=== PATIENT | female | born 1950 | race American Indian/Alaskan Native ===

== ENCOUNTER 2019-09-20 10:54 | Observation (INO) | payer MEDICARE ==
[2019-09-20] MEDS ORDERED: ASPIRIN 81 MG TAB CHEW PO ONE (11:16)
[2019-09-20] MEDS ORDERED: ALBUTEROL 2.5 MG/3 ML NEBU IH ONE (11:17)
[2019-09-20] MEDS ORDERED: methylPREDNISolone Sod Succinate 125 MG/2 ML INJ IV ONE (11:17)
[2019-09-20] MEDS ORDERED: MORPHINE 4 MG/1 ML INJ IV ONE (11:17)
[2019-09-20] MEDS ORDERED: IPRATROPIUM 0.02% NEBU 2.5 ML IH ONE (11:17)
[2019-09-20] MEDS ORDERED: ONDANSETRON 4 MG/2 ML INJ IV ONE (11:17)
--- NOTE | 2019-09-20 11:22 | Emergency Department Report ---
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 Patient presented to the ER complaining of substernal chest pain, described as tightness with no radiation. Patient also complaining of shortness of breath and difficulty in breathing. Patient stated that she went to [facility] 3 days ago and she was discharged from the ER after she received a breathing treatment. Patient stated that chest pain started this morning. Patient denied any fever or chills. MD Complaint: chest pain -: This morning Onset: during rest Pain Location: substernal Pain Radiation: none Severity: moderate Severity scale (0 -10): 5 Quality: tightness Consistency: constant Improves With: nothing Worsens With: nothing - Related Data Home Medications Medication Instructions Recorded Confirmed Last Taken Furosemide 40 mg PO DAILY 01/04/17 01/04/17 Unknown HYDROcodone/ACETAMINOPHEN 10 mg PO DAILY 01/04/17 01/04/17 Unknown [Hydrocodon-Acetaminophen 5-500 Tab (Nf)] Levothyroxine [Synthroid] 50 mcg PO QAM 01/04/17 01/04/17 Unknown Oxycodone HCl [Oxycontin] 40 mg PO DAILY 01/04/17 01/04/17 Unknown Pregabalin [Lyrica] 100 mg PO DAILY 01/04/17 01/04/17 Unknown Previous Rx's Medication Instructions Recorded Last Taken Type HYDROcodone/APAP 7.5-325 [[place] 1 each PO Q6HR PRN #20 tablet 02/27/14 Unknown Rx 7.5/325 mg] Allergies Allergy/AdvReac Type Severity Reaction Status Date / Time topiramate AdvReac Unknown Verified 09/20/19 11:23 Heart Score - HEART Score History: Moderately suspicious ED Review of Systems ROS: Stated complaint: CHEST PAIN Other details as noted in HPI Comment: All other systems reviewed and negative Constitutional: denies: chills, fever Respiratory: shortness of breath, SOB with exertion, SOB at rest, wheezing. denies: cough Cardiovascular: chest pain Gastrointestinal: denies: abdominal pain, nausea, vomiting Musculoskeletal: denies: back pain Neurological: denies: headache, weakness, numbness, paresthesias, confusion, abnormal gait ED Past Medical Hx - Past Medical History Hx Hypertension: No Hx Heart Attack/AMI: No Hx Congestive Heart Failure: No Hx Diabetes: No Hx Deep Vein Thrombosis: No Hx Pulmonary Embolism: No Hx Liver Disease: No Hx Renal Disease: No Hx Sickle Cell Disease: No Hx Arthritis: No Hx Kidney Stones: No Hx Asthma: No Hx COPD: Yes Hx Tuberculosis: No Hx HIV: No Additional medical history: chronic pain - Surgical History Hx Coronary Stent: No Hx Pacemaker: No Hx Internal Defibrillator: No Hx Appendectomy: Yes Additional Surgical History: bilateral AKA,partial right breast/thyroidectomy - Social History Smoking Status: Current Every Day Smoker - Medications Home Medications: Home Medications Medication Instructions Recorded Confirmed Last Taken Type HYDROcodone/APAP 7.5-325 [[place] 1 each PO Q6HR PRN #20 tablet 02/27/14 01/04/17 Unknown Rx 7.5/325 mg] Furosemide 40 mg PO DAILY 01/04/17 01/04/17 Unknown History HYDROcodone/ACETAMINOPHEN 10 mg PO DAILY 01/04/17 01/04/17 Unknown History [Hydrocodon-Acetaminophen 5-500 Tab (Nf)] Levothyroxine [Synthroid] 50 mcg PO QAM 01/04/17 01/04/17 Unknown History Oxycodone HCl [Oxycontin] 40 mg PO DAILY 01/04/17 01/04/17 Unknown History Pregabalin [Lyrica] 100 mg PO DAILY 01/04/17 01/04/17 Unknown History ED Physical Exam - General General appearance: alert, in no apparent distress - Head Head exam: Present: atraumatic, normocephalic, normal inspection - Eye Eye exam: Present: normal appearance - ENT ENT exam: Present: normal exam, normal orophraynx, mucous membranes moist - Neck Neck exam: Present: normal inspection. Absent: tenderness, meningismus - Respiratory Respiratory exam: Present: wheezes, decreased breath sounds - Cardiovascular Cardiovascular Exam: Present: regular rate, normal rhythm, normal heart sounds - GI/Abdominal GI/Abdominal exam: Present: soft, normal bowel sounds. Absent: distended, tenderness, guarding, rebound, rigid, organomegaly, mass, bruit, pulsatile mass, hernia - Extremities Exam Extremities exam: Present: normal inspection, full ROM, normal capillary refill ED Course Vital Signs 09/20/19 09/20/1920 11:08 11:16 11:17 Temperature 97.5 F L Pulse Rate 78 65 Pulse Rate [ Anterior Bilateral Throughout] Respiratory 21 16 Rate Respiratory Rate [Anterior Bilateral Throughout] Blood Pressure 132/54 132/54 O2 Sat by Pulse 98 100 99 Oximetry 09/20/19 09/20/19 09/20/19 11:30 11:45 12:00 Temperature Pulse Rate 67 66 67 Pulse Rate [ Anterior Bilateral Throughout] Respiratory 16 13 14 Rate Respiratory Rate [Anterior Bilateral Throughout] Blood Pressure 132/54 119/74 O2 Sat by Pulse 97 97 99 Oximetry 09/20/19 09/20/19 09/20/19 12:15 12:30 12:45 Temperature Pulse Rate 61 61 76 Pulse Rate [ Anterior Bilateral Throughout] Respiratory 11 L 7 L 20 Rate Respiratory Rate [Anterior Bilateral Throughout] Blood Pressure 119/74 111/66 111/66 O2 Sat by Pulse 94 95 94 Oximetry 09/20/19 09/20/19 13:00 13:27 Temperature Pulse Rate 68 Pulse Rate [ 78 Anterior Bilateral Throughout] Respiratory 8 L Rate Respiratory 19 Rate [Anterior Bilateral Throughout] Blood Pressure 118/63 O2 Sat by Pulse 96 Oximetry ED Medical Decision Making - Lab Data Result diagrams: 09/20/19 11:54 09/20/19 11:54 - EKG Data -: EKG Interpreted by Nv EKG shows normal: sinus rhythm Rate: normal - EKG Data Interpretation: no acute changes - Radiology Data Radiology results: report reviewed - Medical Decision Making Patient is 68 years old female with history of hypertension, COPD, 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 Patient presented to the ER complaining of substernal chest pain, described as tightness with no radiation. Patient also complaining of shortness of breath and difficulty in breathing. Patient stated that she went to [facility] 3 days ago and she was discharged from the ER after she received a breathing treatment. Patient stated that chest pain started this morning. Patient denied any fever or chills. Patient EKG showed no ST elevation. Labs reviewed and is unremarkable except for elevated d-dimer. Patient is allergic to IV dye so VQ scan ordered. Patient received morphine for pain. I discussed the patient with Dr. Todd, he agreed to admit the patient to medical service for further management. Critical care attestation.: If time is entered above; I have spent that time in minutes in the direct care of this critically ill patient, excluding procedure time. ED Disposition Clinical Impression: Chest pain Disposition: OP ADMIT IP TO THIS HOSP Is pt being admited?: Yes Condition: Stable Instructions: Chest Pain (ED)
[2019-09-20] MEDS ORDERED: PANTOPRAZOLE 40 MG INJ IV ONE (11:39)
--- NOTE | 2019-09-20 11:49 | XRay Report ---
CHEST 1 VIEW INDICATION: Chest Pain. COMPARISON: 01/04/2017 FINDINGS: Support devices: None. Heart: Normal. Lungs/Pleura: Mild diffuse increased interstitial markings are noted, similar to the prior. No consol idation, significant effusion, or pneumothorax. IMPRESSION: 1. Age-indeterminate diffuse increased interstitial markings, similar to the remote prior exam. Signer Name: Luis M Goodman MD Signed: 09/20/2019 11:44 AM Workstation Name: [id number]
[2019-09-20 12:12] LABS: Basophils % (Auto) 0.3 % (0.0-1.8); Eosinophils % (Auto) 0.5 % (0.0-4.3); Hematocrit 35.8 % (30.3-42.9); Hemoglobin 11.7 gm/dl (10.1-14.3); Lymphocytes # (Auto) 0.8 K/mm3 (1.2-5.4); Mean Corpuscular HGB Conc 33 % (30-34); Mean Corpuscular Volume 88 fl (79-97); Monocytes # (Auto) 0.1 K/mm3 (0.0-0.8); Monocytes % (Auto) 3.6 % (0.0-7.3); Red Blood Count 4.08 M/mm3 (3.65-5.03); Red Cell Distribution Width 14.6 % (13.2-15.2)
[2019-09-20 12:19] LABS: Platelet Count 98 K/mm3 (140-440)
[2019-09-20 12:22] LABS: INR 1.01 (0.87-1.13)
[2019-09-20 12:33] LABS: BUN/Creatinine Ratio 13; Blood Urea Nitrogen 10 mg/dL (7-17); Calcium 9.5 mg/dL (8.4-10.2); Hemolysis Index 4
[2019-09-20 12:37] LABS: Alanine Aminotransferase 7 units/L (7-56)
[2019-09-20 12:44] LABS: Bilirubin,Direct < 0.2 mg/dL (0-0.2)
--- NOTE | 2019-09-20 15:03 | History and Physical Report ---
History of Present Illness Chief complaint: I cannot get my breathing right History of present illness: 68 YO Female with COPD, Nicotine Dependence, Chronic Pain Syndrome, SHA presents to ED for evaluation. Patient states that she has experienced rapid breathing, feeling of impending doom, feeling scared, and feeling short of breath over the past 3 days with recurrent symptoms intermittently. Patient was seen and evaluated at [facility] for the aforementioned symptoms and subsequently discharged home yesterday with supportive care. Patient states that she has experienced recurrent symptoms overnight. EMS was notified and upon arrival the patient was found to be in distress and subsequently transp orted to [facility] for further care and evaluation. Patient seen and evaluated in the emergency department. Lab and imaging studies reviewed. Patient found to have symptoms consistent with atypical chest pain secondary to generalized anxiety disorder. Patient placed in observation status and admitted to [facility] unit. Patient treated with supportive care, PPI therapy, benzodiazepine therapy. Patient declined psychiatry consult. Advanced care planning conducted in ED. Patient denies fever, chills, productive cough, skin rash, recent ill contacts. No prior admission for review. All listed medication reconciled at time of admission. Past History Past Surgical History: appendectomy, mastectomy, Other ([id number] amputation) Social history: , smoking. denies: alcohol abuse, prescription drug abuse Family history: no significant family history Medications and Allergies Allergies Allergy/AdvReac Type Severity Reaction Status Date / Time topiramate AdvReac Unknown Verified 09/20/19 11:23 Home Medications Medication Instructions Recorded Confirmed Last Taken Type HYDROcodone/APAP 7.5-325 [[place] 1 each PO Q6HR PRN #20 tablet 02/27/14 01/04/17 Unknown Rx 7.5/325 mg] Furosemide 40 mg PO DAILY 01/04/17 01/04/17 Unknown History HYDROcodone/ACETAMINOPHEN 10 mg PO DAILY 01/04/17 01/04/17 Unknown History [Hydrocodon-Acetaminophen 5-500 Tab (Nf)] Levothyroxine [Synthroid] 50 mcg PO QAM 01/04/17 01/04/17 Unknown History Oxycodone HCl [Oxycontin] 40 mg PO DAILY 01/04/17 01/04/17 Unknown History Pregabalin [Lyrica] 100 mg PO DAILY 01/04/17 01/04/17 Unknown History Review of Systems Constitutional: no weight loss, no weight gain, no fever, no chills Ears, nose, mouth and throat: no ear pain, no ear discharge, no tinnitis, no decreased hearing, no nose pain, no nasal congestion Breasts: no change in shape, no swelling, no mass Cardiovascular: no chest pain, no orthopnea, no rapid/irregular heart beat Respiratory: no cough, no cough with sputum, no excessive sputum Gastrointestinal: no nausea, no vomiting, no diarrhea, no constipation Genitourinary Female: no pelvic pain, no flank pain, no menorrhagia Rectal: no pain, no incontinence, no bleeding Musculoskeletal: no neck stiffness, no neck pain, no leg numbness/tingling, no r edness of joints Integumentary: no rash, no pruritis, no redness, no sores, no wounds Neurological: no transient paralysis, no parathesias, no numbness, no syncope Psychiatric: anxiety, sleep disturbances, depression, anxiety attacks, difficulties concentrating, irritability, sadness/tearfullness, mood swings Endocrine: no cold intolerance, no heat intolerance, no polyphagia, no excessive thirst, no polydipsia, no nocturia Hematologic/Lymphatic: no easy bruising, no easy bleeding, no lymphadenopathy, no lymphedema Allergic/Immunologic: no urticaria, no allergic rhinitis, no wheezing, no anaphylaxis, no angioedema Exam - Constitutional Vitals: Temp Pulse Resp BP Pulse Ox 97.5 F L 78 19 118/63 96 09/20/19 11:17 09/20/19 13:27 09/20/19 13:27 09/20/19 13:00 09/20/19 13:00 General appearance: Present: no acute distress, well-nourished - EENT Eyes: Present: PERRL ENT: hearing intact, clear oral mucosa - Neck Neck: Present: supple, normal ROM - Respiratory Respiratory effort: normal Respiratory: bilateral: CTA - Cardiovascular Heart Sounds: Present: S1 & S2. Absent: rub, click - Extremities Extremities: pulses symmetrical, No edema Peripheral Pulses: within normal limits - Abdominal General gastrointestinal: Present: soft, non-tender, non-distended, normal bowel sounds Female genitourinary: Present: normal - Integumentary Integumentary: Present: clear, warm, dry - Musculoskeletal Musculoskeletal: gait normal, strength equal bilaterally - Psychiatric Psychiatric: appropriate mood/affect, intact judgment & insight - Neurologic Neurologic: CNII-XII intact, moves all extremities Results - Labs CBC & Chem 7: 09/20/19 11:54 09/20/19 11:54 Labs: Abnormal lab results 09/20/19 09/20/19 09/20/19 Range/Units 11:54 11:54 11:54 WBC 4.0 L (4.5-11.0) K/mm3 Plt Count 98 L (140-440) K/mm3 Lymph # 0.8 L (1.2-5.4) K/mm3 Seg Neutrophils % 74.6 H (40.0-70.0) % D-Dimer 680.92 H (0-234) ng/mlDDU Sodium 135 L (137-145) mmol/L Carbon Dioxide 20 L (22-30) mmol/L Glucose 107 H (65-100) mg/dL Total Protein (6.3-8.2) g/dL 09/20/19 Range/Units 11:54 WBC (4.5-11.0) K/mm3 Plt Count (140-440) K/mm3 Lymph # (1.2-5.4) K/mm3 Seg Neutrophils % (40.0-70.0) % D-Dimer (0-234) ng/mlDDU Sodium (137-145) mmol/L Carbon Dioxide (22-30) mmol/L Glucose (65-100) mg/dL Total Protein 9.5 H (6.3-8.2) g/dL Assessment and Plan - Patient Problems (1) Generalized anxiety disorder with panic attacks Current Visit: Yes Status: Acute Plan to address problem: Ativan nightly and as needed, psychiatry consult, outpatient psychiatry follow- up, supportive care. (2) Atypical chest pain Current Visit: Yes Status: Acute Plan to address problem: Suspect secondary to gastroesophageal reflux disease, PPI therapy, supportive care. Echo, thyroid panel, magnesium, cardiology consulted in ED. (3) Nicotine dependence Current Visit: Yes Status: Acute Qualifiers: Nicotine product type: cigarettes Substance use status: in withdrawal Qualified Code(s): F17.213 - Nicotine dependence, cigarettes, with withdrawal Plan to address problem: Smoking cessation counseling, supportive care, +15 minutes. (4) Advance care planning Current Visit: Yes Status: Acute Plan to address problem: Patient is full code, disease education conducted, patient acknowledges understanding and agreement with care plan, +30 minutes. (5) DVT prophylaxis Current Visit: Yes Status: Acute Plan to address problem: SCD to bilateral lower extremities while in bed,
[2019-09-20] MEDS ORDERED: MORPHINE 2 MG/1 ML INJ IV PRN (15:10)
[2019-09-20] MEDS ORDERED: ACETAMINOPHEN 325 MG TAB PO PRN (15:10)
[2019-09-20] MEDS ORDERED: NITROGLYCERIN 0.4 MG TAB SUBL SL PRN (15:13)
[2019-09-20] MEDS: ONDANSETRON 4 MG/2 ML INJ IV PRN ×2 (15:57→22:46)
[2019-09-20] MEDS ORDERED: LORazepam 0.5 MG TAB PO SCH (22:00)
[2019-09-20] MEDS: PANTOPRAZOLE 40 MG TAB PO SCH (22:46)
[2019-09-21] MEDS ORDERED: LEVOTHYROXINE 50 MCG TAB PO SCH (06:00)
[2019-09-21] MEDS ORDERED: FUROSEMIDE 40 MG TAB PO SCH (06:00)
[2019-09-21 07:55] VITALS: BP 145/73
[2019-09-21] MEDS ORDERED: HYDROCODONE PO SCH (10:00)
[2019-09-21] MEDS ORDERED: PREGABALIN 25 MG CAP PO SCH (10:00)
[2019-09-21] MEDS ORDERED: [UNRECOGNIZED DRUG - OTHER] PO SCH (10:00)
[2019-09-21] MEDS ORDERED: OXYCODONE HCL 40 MG PO SCH (10:00)
[2019-09-21] MEDS ORDERED: HYDROcodone/ACETAMINOPHEN 10-325MG TAB PO SCH (10:00)
[2019-09-21] MEDS ORDERED: oxyCODONE ER 20 MG TAB PO SCH (10:00)
[2019-09-21] MEDS ORDERED: NON-FORMULARY EACH (Pregabalin [Lyrica] 100 MG) PO SCH (10:00)
[2019-09-21] MEDS ORDERED: ACETAMINOPHEN PO SCH (10:00)
--- NOTE | 2019-09-21 10:11 | Consultation ---
History of Present Illness Consult date: 09/21/19 Consult reason: chest pain History of present illness: This is a 68-year old woman with multiple medical problems. She has a history of COPD, chronic pain syndrome, PVD status post bilateral AKA, right breast cancer and prior thyroid cancer. There is no history of coronary artery disease. She has not had any recent cardiac evaluation. Patient presented to this hospital with complaints of shortness of breath and chest pain. A cardiac consultation has been requested for chest pain evaluation Patient describes chest pain as pressure. She denies palpitations and dizziness. There was no syncope. Of note, patient was seen at [facility] less than 48 hours ago with shortness of breath. Patient was treated in the emergency department and discharged home. A chest x-ray is negative. Cycled troponins are negative and her ECG is sinus rh ythm. No acute ischemic changes. Past History Past Surgical History: appendectomy, mastectomy, Other ([id number] amputation) Social history: , smoking. denies: alcohol abuse, prescription drug abuse Family history: no significant family history Medications and Allergies Allergies Allergy/AdvReac Type Severity Reaction Status Date / Time topiramate AdvReac Unknown Verified 09/20/19 11:23 iv dye Allergy Nausea Uncoded 09/20/19 17:07 Home Medications Medication Instructions Recorded Confirmed Last Taken Type Furosemide 40 mg PO DAILY 01/04/17 09/20/19 Unknown History HYDROcodone/ACETAMINOPHEN 10 mg PO BID PRN 01/04/17 09/20/19 Unknown History [Hydrocodon-Acetaminophen 5-500 Tab (Nf)] Levothyroxine [Synthroid] 50 mcg PO QAM 01/04/17 09/20/19 Unknown History Oxycodone HCl [Oxycontin] 40 mg PO DAILY 01/04/17 09/20/19 Unknown History Pregabalin [Lyrica] 100 mg PO DAILY 01/04/17 09/20/19 Unknown History Fluticasone/Vilanterol [Breo 1 1000units INHALATION QDAY 09/20/19 09/20/19 U nknown History Ellipta 100-25 Mcg INH] ALPRAZolam [Xanax TAB] 0.25 mg PO DAILY PRN #14 tab 09/21/19 Unknown Rx Lactulose 10 gm PO PRN PRN 09/21/19 09/21/19 Unknown History Pantoprazole [Protonix TAB] 40 mg PO QDAY #30 tablet 09/21/19 Unknown Rx Active Meds: Active Medications Acetaminophen (Tylenol) 650 mg PO Q4H PRN PRN Reason: Pain MILD(1-3)/Fever >100.5/KRAUS Acetaminophen/Hydrocodone Bitart ([place] 10/325) 1 each PO DAILY [facility] Furosemide (Lasix) 40 mg PO DAILY@0600 [facility] Levothyroxine Sodium (Synthroid) 50 mcg PO DAILY@0600 [facility] Lorazepam (Ativan) 0.5 mg PO QHS [facility] Last Admin: 09/20/19 21:58 Dose: Not Given Documented by: Morphine Sulfate (Morphine) 2 mg IV Q4H PRN PRN Reason: Pain, Moderate (4-6) Last Admin: 09/20/19 15:57 Dose: 2 mg Documented by: Nitroglycerin (Nitrostat) 0.4 mg SL Q5M PRN PRN Reason: Chest Pain Ondansetron HCl (Zofran) 4 mg IV Q8H PRN PRN Reason: Nausea And Vomiting Last Admin: 09/20/19 22:46 Dose: 4 mg Documented by: Oxycodone HCl (Oxycontin) 40 mg PO DAILY [facility] Pantoprazole Sodium (Protonix) 40 mg PO BID [facility] Last Admin: 09/20/19 22:46 Dose: 40 mg Documented by: Pregabalin (Pregabalin) 100 mg PO DAILY [facility] Sodium Chloride (Sodium Chloride Flush Syringe 10 Ml) 10 ml IV BID [facility] Last Admin: 09/20/19 22:46 Dose: 10 ml Documented by: Sodium Chloride (Sodium Chloride Flush Syringe 10 Ml) 10 ml IV PRN PRN PRN Reason: LINE FLUSH Sodium Chloride (Sodium Chloride Flush Syringe 10 Ml) 10 ml IV PRN PRN PRN Reason: LINE FLUSH Physical Examination Vital Signs Pulse Ox 98 09/20/19 11:08 General appearance: no acute distress HEENT: Positive: PERRL Neck: Positive: trachea midline Cardiac: Positive: Reg Rate and Rhythm Lungs: Positive: Decreased Breath Sounds Results 09/20/19 11:54 09/20/19 11:54 Cardiac Enzymes 09/20/19 Range/Units 11:54 AST 17 (5-40) units/L Coagulation 09/20/19 Range/Units 11:54 PT 13.4 (12.2-14.9) Sec. INR 1.01 (0.87-1.13) APTT 25.0 (24.2-36.6) Sec. CBC 09/20/19 Range/Units 11:54 WBC 4.0 L (4.5-11.0) K/mm3 RBC 4.08 (3.65-5.03) M/mm3 Hgb 11.7 (10.1-14.3) gm/dl Hct 35.8 (30.3-42.9) % Plt Count 98 L (140-440) K/mm3 Lymph # 0.8 L (1.2-5.4) K/mm3 [place] # 0.1 (0.0-0.8) K/mm3 Eos # 0.0 (0.0-0.4) K/mm3 Baso # 0.0 (0.0-0.1) K/mm3 Comprehensive Metabolic Panel 09/20/19 09/20/19 Range/Units 11:54 11:54 Sodium 135 L (137-145) mmol/L Potassium 4.3 (3.6-5.0) mmol/L Chloride 100.3 (98-107) mmol/L Carbon Dioxide 20 L (22-30) mmol/L BUN 10 (7-17) mg/dL Creatinine 0.8 (0.7-1.2) mg/dL Glucose 107 H (65-100) mg/dL Calcium 9.5 (8.4-10.2) mg/dL Direct Bilirubin < 0.2 (0-0.2) mg/dL Indirect Bilirubin 0.2 mg/dL AST 17 (5-40) units/L ALT 7 (7-56) units/L Alkaline Phosphatase 97 (35-129) units/L Total Protein 9.5 H (6.3-8.2) g/dL Albumin 4.0 (3.9-5) g/dL Assessment and Plan - Patient Problems (1) Atypical chest pain Current Visit: Yes Status: Acute Plan to address problem: Chest pain, atypical negative troponins ECG -SR, no acute ischemic changes Patient declined non-invasive pharmacological stress test. We will pursue a conservative cardiac management.
--- NOTE | 2019-09-21 10:21 | Discharge Summary ---
Providers - Providers Date of Admission: 09/20/19 15:10 Attending physician: CHRISTA HUMPHRIES MD 09/20/19 Consult to Cardiac Rehabilitation [CONS] Routine Reason For Exam: Phase I 09/20/19 15:13 Consult to Cardiology [CONS] Routine Consulting Provider: HARPER JAEGER Reason For Exam: atypical chest pain/anxiety 09/21/19 07:30 Consult to Mental Health [CONS] Routine Reason For Exam: depression/anxiety [facility] Reason for admission: Chest pain Condition: Stable Hospital course: 68 YO Female with COPD, Nicotine Dependence, Chronic Pain Syndrome, SHA presents to ED for evaluation. Patient states that she has experienced rapid breathing, feeling of impending doom, feeling scared, and feeling short of breath over the past 3 days with recurrent symptoms intermittently. Patient was seen and evaluated at [facility] for the aforementioned symptoms and subsequently discharged home yesterday with supportive care. Patient states that she has experienced recurrent symptoms overnight. EMS was notified and upon arrival the patient was found to be in distress and subsequently transported to [facility] for further care and evaluation. Patient seen and evaluated in the emergency department. Lab and imaging studies reviewed. Patient found to have symptoms consistent with atypical chest pain secondary to generalized anxiety disorder. Patient placed in observation status and admitted to [facility] unit. Patient treated with supportive care, PPI therapy, benzodiazepine t herapy. Patient declined psychiatry consult. Advanced care planning conducted in ED. Patient denies fever, chills, productive cough, skin rash, recent ill contacts. No prior admission for review. All listed medication reconciled at time of admission. * On evaluation today patient refused VQ scan refused CT a COLL[place] despite explanation that the VQ scan is different she refused. She reports to me that she ran out of her Pepcid as she normally has stomach upset and this is why she got anxious and got acutely short of breath presented to the hospital. She verbalizes risk of not having the stress test with a VQ scan done despite having a possibility for a pulmonary embolism. She is reports that her shortness of breath is much improved and she is stable enough to be discharged home. She refuses psych consultation. States that she will reviewed with her primary care physician. (1) Generalized anxiety disorder with panic attacks (2) Atypical chest pain secondary to anxiety with underlying GERD (3) Nicotine dependence (4) GERD Disposition: DC-01 TO HOME OR SELFCARE Time spent for discharge: 35 mins Core Measure Documentation - Palliative Care Palliative Care/ Comfort Measures: Not Applicable - Core Measures Any of the following diagnoses?: none Exam - Physical Exam Narrative exam: VITAL SIGNS: Reviewed. GENERAL: The patient appears normally developed, Vital signs as documented. HEAD: No signs of head trauma. EYES: Pupils are equal. Extraocular motions intact. EARS: Hearing grossly intact. MOUTH: Oropharynx is normal. NECK: No adenopathy, no JVD. CHEST: Chest with clear breath sounds bilaterally. No wheezes, rales, or rhonchi. CARDIAC: Regular rate and rhythm. S1 and S2, without murmurs, gallops, or rubs. VASCULAR: No Edema. Peripheral pulses normal and equal in all extremities. ABDOMEN: Soft, non tender and non distended. No rebound or guarding, and no masses palpated. Bowel Sounds normal. MUSCULOSKELETAL: Bilateral amputation lower extremities NEUROLOGIC EXAM: Alert and oriented x 3 No focal sensory or strength deficits. Speech normal. Follows commands. PSYCHIATRIC: Mood normal. SKIN: detail exam as documented in skin assessment - Constitutional Vitals: Temp Pulse Resp BP Pulse Ox 97.8 F 53 L 18 145/73 96 09/21/19 07:52 09/21/19 07:52 09/21/19 07:52 09/21/19 07:52 09/21/19 07:52 Plan Activity: advance as tolerated, fall precautions Diet: low fat, low salt Special Instructions: record daily weights, record daily BP diary Follow up with: [facility] [place] [Primary Care Provider] - 3-5 Days HARPER JAEGER MD [Staff Physician] - 7 Days Prescriptions: Pantoprazole [Protonix TAB] 40 mg PO QDAY #30 tablet ALPRAZolam [Xanax TAB] 0.25 mg PO DAILY PRN #14 tab PRN Reason: Anxiety
[2019-09-21] MEDS: PANTOPRAZOLE 40 MG TAB PO SCH (10:45)
== END 2019-09-21 12:05 | disposition home or self-care (01) ==
LOC: ED 10:54 → 2B-ACE 15:10
PROVIDERS: ADMIT Internal Medicine; ATTEND Internal Medicine
DX: R07.89 Other chest pain (principal); F41.0 Panic disorder [episodic paroxysmal anxiety]; G89.29 Other chronic pain; J44.9 Chronic obstructive pulmonary disease, unspecified; F17.200 Nicotine dependence, unspecified, uncomplicated; K21.9 Gastro-esophageal reflux disease without esophagitis; Z90.49 Acquired absence of other specified parts of digestive tract; Z90.11 Acquired absence of right breast and nipple
CPT/HCPCS: 36415; 71045; 80048; 80076; 83690; 83880; 84484; 85025; 85379; 85610; 85730; 93005; 93010; 94644; 96374; 96375; 96376; 99285; C9113; G0378; J2270; J2405; J2930